=== PATIENT | male | born 1970 | race Caucasian/White ===

== ENCOUNTER 2024-02-07 23:49 | Emergency (ER) | payer MEDICAID ==
[~2024-02-07] VITALS: Ht 182.9 cm; Wt 86.2 kg
[~2024-02-07 23:49] MED LIST: METO50ER PO
== END 2024-02-08 02:59 | disposition home or self-care (01) ==
LOC: ER 23:49
DX: K40.90 Unilateral inguinal hernia, without obstruction or gangrene, not specified as recurrent (principal); Z88.8 Allergy status to other drugs, medicaments and biological substances; Z79.899 Other long term (current) drug therapy; I48.91 Unspecified atrial fibrillation
CPT/HCPCS: 99283

== ENCOUNTER 2024-02-10 16:46 | Emergency (ER) | payer MEDICAID ==
[~2024-02-10] VITALS: Ht 182.9 cm; Wt 88.5 kg
[2024-02-10] MEDS ORDERED: Naprosyn500 MG PO (18:19)
[2024-02-10] MEDS ORDERED: Ketorolac Tromethamine 10 MG Tab PO ONE (18:20)
== END 2024-02-10 18:40 | disposition home or self-care (01) ==
LOC: ER 16:46
DX: K40.90 Unilateral inguinal hernia, without obstruction or gangrene, not specified as recurrent (principal); Z88.8 Allergy status to other drugs, medicaments and biological substances; I48.91 Unspecified atrial fibrillation
CPT/HCPCS: 99283; A9270